=== PATIENT | female | born 1950 | race Caucasian/White ===

== ENCOUNTER → 2017-07-03 | Outpatient (CLI) | payer OTHER | LOC: CIMAGING 10:22 | PROVIDERS: ATTEND Family Medicine | DX: M25.861 Other specified joint disorders, right knee (principal); M25.862 Other specified joint disorders, left knee; R25.2 Cramp and spasm | CPT/HCPCS: 73562-PO ==

== ENCOUNTER → 2018-09-01 | Outpatient (CLI) | payer OTHER ==
[~2018-09-01] MED LIST: IOPAMIDOL (ISOVUE 370) 100 ML BTL IV ONE
== END ==
LOC: CIMAGING 10:10
PROVIDERS: ATTEND Otolaryngology
DX: Z12.31 Encounter for screening mammogram for malignant neoplasm of breast (principal); H92.01 Otalgia, right ear; J43.2 Centrilobular emphysema
CPT/HCPCS: 70491; Q9967; 70492-PO; 82565-PO